=== PATIENT | female | born 1995 | race Caucasian/White ===

== ENCOUNTER 2018-07-20 20:06 | Emergency (ER) | payer SELFPAY, MEDICAID | END 2018-07-20 21:14 | disposition left against medical advice (07) | LOC: E/R 20:06 | DX: Z53.21 Procedure and treatment not carried out due to patient leaving prior to being seen by health care provider (principal) | CPT/HCPCS: 99281 ==

== ENCOUNTER 2018-07-20 23:38 | Emergency (ER) | payer MEDICAID | END 2018-07-21 02:33 | disposition home or self-care (01) | LOC: E/R 23:38 | DX: H66.92 Otitis media, unspecified, left ear (principal) | CPT/HCPCS: 99283; Z7502 ==

== ENCOUNTER → 2018-08-21 | Outpatient (CLI) | payer MEDICAID | END | disposition home or self-care (01) | LOC: RAD 12:24 | DX: O26.899 Other specified pregnancy related conditions, unspecified trimester (principal); R76.11 Nonspecific reaction to tuberculin skin test without active tuberculosis; Z3A.00 Weeks of gestation of pregnancy not specified | CPT/HCPCS: 71046 ==

== ENCOUNTER 2018-11-20 20:42 | Inpatient (IN) | payer MEDICAID ==
[2018-11-20] MEDS ORDERED: LACTATED RINGER'S 1,000 ML IV (21:23)
[2018-11-20 21:27] LABS: ADD UMIC YES; UR ASCORBIC ACID NEGATIVE (NEGATIVE); UR BACTERIA FEW /HPF (NONE SEEN); UR BILIRUBIN (Dip) NEGATIVE (NEGATIVE); UR BLOOD (Dip) 2+ mg/dL (NEGATIVE); UR CLARITY SLIGHTLY CLOUDY (CLEAR); UR COLOR YELLOW (YELLOW); UR GLUCOSE (Dip) NEGATIVE (NEGATIVE); UR KETONES (Dip) NEGATIVE (NEGATIVE); UR LEUKOCYTE ESTERASE (Dip) 1+ Leu/ul (NEGATIVE); UR NITRITE (Dip) NEGATIVE (NEGATIVE); UR RBC 1 /HPF (0-5); UR SPECIFIC GRAVITY (Dip) 1.009 (1.003-1.030); UR SQUAMOUS EPITHELIAL CELL MANY /HPF (FEW); UR TOTAL PROTEIN (Dip) NEGATIVE (NEGATIVE); UR UROBILINOGEN (Dip) NEGATIVE (NEGATIVE); UR WBC 6 /HPF (0-5)
[2018-11-20] MEDS ORDERED: MISOPROSTOL 200 MCG TAB PR (21:30)
[2018-11-20] MEDS ORDERED: IBUPROFEN 600 MG TAB PO (21:30)
[2018-11-20] MEDS ORDERED: BUTORPHANOL 2 MG INJ IV ×2 (21:30)
[2018-11-20] MEDS ORDERED: OXYTOCIN 30 UNITS/LR 500 ML IV (21:30)
[2018-11-20] MEDS ORDERED: METHYLERGONOVINE 0.2 MG INJ IM (21:30)
[2018-11-20] MEDS ORDERED: LIDOCAINE 1% (MPF) 30 ML INJ INJ (21:30)
[2018-11-20] MEDS ORDERED: CARBOPROST 250 MCG INJ IM (21:30)
[2018-11-20 21:53] LABS: ADD MAN DIFF? NO
[2018-11-20] MEDS: LACTATED RINGER'S 1,000 ML IV (21:54)
[2018-11-20 21:56] LABS: WHITE BLOOD COUNT 9.8 10^3/ul (4.8-10.8)
[2018-11-20 21:56] LABS: ABNORMAL IP MESSAGE 1; BASOPHILS % 0.3 % (0.0-2.0); EOSINOPHILS # 0.1 10^3/ul (0.0-0.5); EOSINOPHILS % 0.5 % (0.0-7.0); HEMATOCRIT 37.8 % (37.0-47.0); HEMOGLOBIN 12.9 g/dl (12.0-16.0); LYMPHOCYTES # 2.4 10^3/ul (0.8-2.9); LYMPHOCYTES % 24.7 % (15.0-51.0); MEAN CORPUSCULAR HEMOGLOBIN 30.9 pg (29.0-33.0); MEAN CORPUSCULAR HGB CONC 34.1 g/dl (32.0-37.0); MEAN CORPUSCULAR VOLUME 90.4 fl (82.0-101.0); MEAN PLATELET VOLUME 13.1 fl (7.4-10.4); MONOCYTE # 0.5 10^3/ul (0.3-0.9); MONOCYTES % 5.5 % (0.0-11.0); NEUTROPHIL # 6.7 10^3/ul (1.6-7.5); NEUTROPHILS % 68.2 % (39.0-77.0); PLATELET COUNT 128 10^3/UL (140-415); RED BLOOD COUNT 4.18 10^6/ul (4.20-5.40); RED CELL DISTRIBUTION WIDTH 13.7 % (11.5-14.5)
[2018-11-20] MEDS: AMPICILLIN 2 GM/NS (PMX) 100 ML IV (22:00)
[2018-11-20 22:32] LABS: INR 0.93; PROTIME 12.6 Sec (11.9-14.9)
[2018-11-20 22:51] LABS: HEPATITIS B SURFACE ANTIGEN NEGATIVE (NEGATIVE)
[2018-11-21] MEDS: AMPICILLIN 1 GM/NS (PMX) 50 ML IV (01:30)
[2018-11-21] MEDS: MINERAL OIL LIGHT 10 ML VIAL TOP (02:12)
[2018-11-21] MEDS: OXYTOCIN 30 UNITS/LR 500 ML IV ×4 (02:13→06:55)
[2018-11-21] MEDS: LACTATED RINGER'S 1,000 ML IV* ×3 (02:16→19:20)
[2018-11-21] MEDS ORDERED: METHYLERGONOVINE 0.2 MG INJ IM (02:30)
[2018-11-21] MEDS ORDERED: OXYTOCIN 30 UNITS/LR 500 ML IV (02:30)
[2018-11-21] MEDS ORDERED: MISOPROSTOL 200 MCG TAB PR (02:30)
[2018-11-21] MEDS ORDERED: CARBOPROST 250 MCG INJ IM (02:30)
[2018-11-21] MEDS: HYDROCODONE/APAP (5/325) TAB PO (03:26)
[2018-11-21] MEDS: IBUPROFEN 600 MG TAB PO ×4 (06:51→23:57)
[2018-11-21 14:56] LABS: RAPID PLASMA REAGIN NONREACTIVE (NR)
[2018-11-22] MEDS: LACTATED RINGER'S 1,000 ML IV* ×3 (01:02→19:25)
[2018-11-22] MEDS: IBUPROFEN 600 MG TAB PO ×4 (05:52→23:30)
[2018-11-22 06:58] LABS: ADD MAN DIFF? NO
[2018-11-22 07:03] LABS: BASOPHILS % 0.3 % (0.0-2.0); EOSINOPHILS # 0.2 10^3/ul (0.0-0.5); EOSINOPHILS % 1.7 % (0.0-7.0); HEMATOCRIT 34.6 % (37.0-47.0); HEMOGLOBIN 11.5 g/dl (12.0-16.0); LYMPHOCYTES # 3.2 10^3/ul (0.8-2.9); LYMPHOCYTES % 36.5 % (15.0-51.0); MEAN CORPUSCULAR HEMOGLOBIN 30.8 pg (29.0-33.0); MEAN CORPUSCULAR HGB CONC 33.2 g/dl (32.0-37.0); MEAN CORPUSCULAR VOLUME 92.8 fl (82.0-101.0); MEAN PLATELET VOLUME 12.7 fl (7.4-10.4); MONOCYTE # 0.6 10^3/ul (0.3-0.9); MONOCYTES % 6.4 % (0.0-11.0); NEUTROPHIL # 4.8 10^3/ul (1.6-7.5); NEUTROPHILS % 54.3 % (39.0-77.0); PLATELET COUNT 108 10^3/UL (140-415); RED BLOOD COUNT 3.73 10^6/ul (4.20-5.40)
[2018-11-22 07:03] LABS: WHITE BLOOD COUNT 8.9 10^3/ul (4.8-10.8)
[2018-11-23] MEDS: LACTATED RINGER'S 1,000 ML IV* ×2 (02:16→10:16)
[2018-11-23] MEDS: IBUPROFEN 600 MG TAB PO ×3 (05:31→17:35)
[2018-11-23] MEDS: LANOLIN HPA 1 PKT TOP (05:58)
[2018-11-23] MEDS: DIPHTH/TET/ACEL PERTUSS (ADULT) 0.5 ML VIAL IM* (09:00)
== END 2018-11-23 17:40 | disposition home or self-care (01) | DRG 807 ==
LOC: OBT 20:42 → PP1 11-21 03:16 → L-D 20:42 → OBT 21:20 → L-D 21:20
PROC: 10E0XZZ Delivery of Products of Conception, External Approach (ICD-10-PCS; principal; 2018-11-22)
DX: O99.824 Streptococcus B carrier state complicating childbirth (principal); Z37.0 Single live birth; Z3A.38 38 weeks gestation of pregnancy
CPT/HCPCS: 81001; 85025; 85610; 85730; 86592; 86850; 86900; 86901; 87086; 87340